=== PATIENT | male | born 1980 | race American Indian/Alaskan Native ===

== ENCOUNTER 2022-05-02 01:18 | Emergency (ER) | payer SELFPAY ==
[2022-05-02 01:35] VITALS: BP 113/67
== END 2022-05-02 13:51 | disposition left against medical advice (07) ==
LOC: ED 01:18
DX: R05.9 Cough, unspecified (principal); J02.9 Acute pharyngitis, unspecified; Z53.21 Procedure and treatment not carried out due to patient leaving prior to being seen by health care provider